=== PATIENT | male | born 1940 | race Caucasian/White ===

== ENCOUNTER 2019-04-17 10:28 | Day surgery (SDC) | payer MEDICARE, BC ==
[2019-04-17] VITALS (9 sets, daily range): BP systolic 104–159; BP diastolic 57–99
[~2019-04-17] VITALS: Ht 182.9 cm; Wt 70.8 kg
[2019-04-17] MEDS ORDERED: diphenhydrAMINE 25mg capsule PO PRN (10:50)
[2019-04-17] MEDS ORDERED: normal saline 1,000 ML IV SCH (10:50)
[2019-04-17 11:36] LABS: BASOPHILS % (AUTO) 0.3 % (0-1); EOSINOPHILS % (AUTO) 0 % (0-6); HEMATOCRIT 28.3 % (42.0-52.0); LYMPHOCYTES # (AUTO) 0.8 X10'3 (1.1-4.8); LYMPHOCYTES % (AUTO) 18.1 % (21-51); MEAN CORPUSCULAR HEMOGLOBIN 40.4 PG (27.0-31.0); MEAN CORPUSCULAR HGB CONC 35.5 g/dL (33.0-36.5); MEAN CORPUSCULAR VOLUME 113.9 FL (78-98); MEAN PLATELET VOLUME 9.8 FL (7.4-10.4); MONOCYTES # (AUTO) 0.9 X10'3 (0-0.9); MONOCYTES % (AUTO) 19.2 % (2-12); NEUTROPHILS # (AUTO) 2.8 X10'3 (1.8-7.7); NEUTROPHILS % (AUTO) 62.4 % (42-75); PLATELET COUNT 118 X10'3 (140-440); RED BLOOD COUNT 2.49 X10'6 (4.70-6.10); RED CELL DISTRIBUTION WIDTH 16.5 % (11.5-14.5); WHITE BLOOD COUNT 4.5 X10'3 (4.5-11.0)
[2019-04-17 11:45] LABS: ALBUMIN 4.1 G/DL (3.4-5.0); ANION GAP 10 (8-16); BLOOD UREA NITROGEN 23 MG/DL (7-18); BUN/CREATININE RATIO 13.6 (5.4-32.0); CALCIUM 8.5 MG/DL (8.5-10.1); CHLORIDE 108 MMOL/L (99-107); CREATININE 1.69 MG/DL (0.60-1.10); GLUCOSE 101 MG/DL (70-104); MAGNESIUM 1.9 MG/DL (1.5-2.4); POTASSIUM 3.9 MMOL/L (3.5-5.1); SODIUM 141 MMOL/L (135-145); TOTAL CARBON DIOXIDE 22.6 MMOL/L (24-32); eGFR 39 ML/MIN
[2019-04-17] MEDS ORDERED: ASPI81TA52 PO (11:51)
[2019-04-17] MEDS ORDERED: ATOR10TA87 PO (11:52)
[2019-04-17] MEDS ORDERED: PEGF6DIS2 SQ (11:54)
[2019-04-17] MEDS ORDERED: AZAC100V SQ (11:56)
[2019-04-17] MEDS ORDERED: ONDA4TAB6 PO (11:58)
[2019-04-17] MEDS ORDERED: iohexol 350 MG/ML 50ML vial IV ONE (12:21)
[2019-04-17] MEDS ORDERED: fentaNYL/PF 50MCG/1 ML 2ML syringe ONE (12:21)
[2019-04-17] MEDS ORDERED: LIDOcaine 1% (10mg/ml)w/preservative injection 20ml MDV ONE (12:21)
[2019-04-17] MEDS ORDERED: midazolam 2 mg/2 ml injection ONE ×2 (12:21→12:45)
[2019-04-17] MEDS ORDERED: iohexol 350MG/ML 100ml bottle IV ONE (12:21)
[2019-04-17 12:31] LABS: ANISOCYTOSIS 1+; LARGE PLATELETS FEW; PLATELET ESTIMATE DECREASED; TOTAL CELLS COUNTED 100
[2019-04-17] MEDS ORDERED: heparin 1,000unit/ml 10ml vial 10 ML ONE (12:49)
[2019-04-17] MEDS ORDERED: HYDROcodone/acetaminophen 10/325mg tab PO PRN (14:15)
[2019-04-17] MEDS ORDERED: OXAZEpam 15mg capsule PO PRN (14:15)
[2019-04-17] MEDS ORDERED: HYDROcodone/acetaminophen 5mg/325mg tablet PO PRN (14:15)
[2019-04-17] MEDS ORDERED: acetaminophen 325mg tablet PO PRN (14:15)
== END 2019-04-17 17:05 | disposition home or self-care (01) ==
LOC: SSTAY O 10:28
PROVIDERS: ATTEND Internal Medicine Cardiovascular Disease
DX: I35.0 Nonrheumatic aortic (valve) stenosis (principal); I25.10 Atherosclerotic heart disease of native coronary artery without angina pectoris; I10 Essential (primary) hypertension; E78.5 Hyperlipidemia, unspecified; D46.9 Myelodysplastic syndrome, unspecified; F17.210 Nicotine dependence, cigarettes, uncomplicated; Z79.899 Other long term (current) drug therapy; Z79.82 Long term (current) use of aspirin; Z88.1 Allergy status to other antibiotic agents; Z98.890 Other specified postprocedural states; Z72.89 Other problems related to lifestyle
CPT/HCPCS: 80048; 83735; 85025; 85610; 93005; 93460; 99152; 99153; C1769; C1894; J1644; J2001; J2250; J3010; J7030; Q0163; Q9967; A4620; A6258; C1760

== ENCOUNTER 2022-02-06 08:02 | Day surgery (SDC) | payer MEDICARE, BC ==
[2022-01-30 11:09] LABS: BASOPHILS % (AUTO) 0.7 % (0-1); EOSINOPHILS % (AUTO) 0.3 % (0-6); LYMPHOCYTES # (AUTO) 1.1 X10'3 (1.1-4.8); LYMPHOCYTES % (AUTO) 49.4 % (21-51); MEAN CORPUSCULAR HEMOGLOBIN 40.6 PG (27.0-31.0); MEAN CORPUSCULAR HGB CONC 34.2 g/dL (33.0-36.5); MEAN CORPUSCULAR VOLUME 118.7 FL (78-98); MEAN PLATELET VOLUME 9.7 FL (7.4-10.4); MONOCYTES # (AUTO) 0.4 X10'3 (0-0.9); MONOCYTES % (AUTO) 19.4 % (2-12); NEUTROPHILS # (AUTO) 0.6 X10'3 (1.8-7.7); NEUTROPHILS % (AUTO) 30.2 % (42-75); PRE OP HEMATOCRIT 27.7 % (42.0-52.0); PRE OP PLATELET COUNT 200 X10'3 (140-440); RED BLOOD COUNT 2.33 X10'6 (4.70-6.10); RED CELL DISTRIBUTION WIDTH 17.9 % (11.5-14.5)
[2022-01-30 11:29] LABS: ALBUMIN 4.1 G/DL (3.4-5.0); ALBUMIN/GLOBULIN RATIO 0.9 (1.1-1.5); ALKALINE PHOSPHATASE 62 IU/L (46-116); BLOOD UREA NITROGEN 28 MG/DL (7-18); BUN/CREATININE RATIO 15.5 (5.4-32.0); CALCIUM 9.3 MG/DL (8.5-10.1); CHLORIDE 106 MMOL/L (99-107); CREATININE 1.81 MG/DL (0.60-1.10); PRE OP ALT 23 U/L (30-65); PRE OP ANION GAP 6 (8-16); PRE OP AST 23 U/L (10-37); PRE OP BILIRUB, TOTAL 0.6 MG/DL (0.0-1.0); PRE OP GLUCOSE 95 MG/DL (70-104); PRE OP POTASSIUM 4.1 MMOL/L (3.4-5.1); PRE OP SODIUM 140 MMOL/L (135-145); TOTAL CARBON DIOXIDE 27.9 MMOL/L (24-32); TOTAL PROTEIN 8.5 G/DL (6.4-8.2); eGFR 36 ML/MIN
[2022-01-30 12:02] LABS: TOTAL CELLS COUNTED 100
[2022-01-30 12:03] LABS: ANISOCYTOSIS 1+; PLATELET ESTIMATE NORMAL
[2022-01-30 12:04] LABS: BURR CELLS FEW; SCHISTOCYTES FEW
[2022-01-30 12:06] LABS: PRE OP HEMOGLOBIN 9.5 g/dL (14.0-17.9)
[2022-02-06] VITALS (11 sets, daily range): BP systolic 121–166; BP diastolic 62–83
[~2022-02-06] VITALS: Ht 182.9 cm; Wt 67.9 kg
[~2022-02-06 08:02] MED LIST: ASPI81TA52 PO; ATOR10TA87 PO; ceFAZolin inj. 2,000 MG in dextrose 5%-water 100 ML IV ONE; famotidine 20mg tablet PO ONE; normal saline 500ml IV soln 500 ML IV SCH
--- NOTE | 2022-02-06 08:25 | NUR ---
PT PREPPED FOR SURGERY. AT BEDSIDE, MULTIPLE QUESTIONS ANSWERED, IS CONCERNED IF PT HAS TO HAVE A WILSON POST SURGERY. DR QUINTANA AT BEDSIDE, ALL QUESTIONS ANSWERED. IV STARTED WITHOUT DIFFICULTY. PT ASSISTED UP TO THE BATHROOM PRIOR TO SURGERY. STATES THAT PT DOES HAVE SOME ER SYMPTOMS, SHE IS CONCERNED THAT HE MIGHT FALL AFTER SURGERY. 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 LARGE BULGING RIGHT SIDED HERNIA PRESENT. MARKED BY DR QUINTANA.
[2022-02-06] MEDS ORDERED: ondansetron/PF 4mg/2ml inj IV PRN (08:40)
[2022-02-06] MEDS ORDERED: proCHLORperazine 10 MG/2 ml inj IV PRN (08:40)
[2022-02-06] MEDS ORDERED: morphine 2 MG/ML inj. syringe IV PRN (08:40)
[2022-02-06] MEDS ORDERED: meperidine/PF 25mg/ml syringe IV PRN ×3 (08:40)
[2022-02-06] MEDS ORDERED: morphine 4 MG/ML inj SYRINge IV PRN (08:40)
[2022-02-06] MEDS ORDERED: ringers solution, lacted 1,000 ML IV SCH (08:40)
[2022-02-06] MEDS ORDERED: propofol inj 20 ML IV ONE (09:04)
[2022-02-06] MEDS ORDERED: midazolam 1 mg/ML 2ml injection ONE (09:04)
[2022-02-06] MEDS ORDERED: fentaNYL/PF 50MCG/1 ML 2ML syringe ONE (09:04)
[2022-02-06] MEDS ORDERED: LIDOcaine 2% (20mg/ml) 5ml vial ONE (09:04)
[2022-02-06] MEDS ORDERED: LIDOcaine 1% 30ml preserv. free vial ONE (09:24)
[2022-02-06] MEDS ORDERED: BUPIVAcaine/PF 2.5mg/ml (0.25%) 10ml vial ONE (09:24)
[2022-02-06] MEDS ORDERED: acetaminophen 1,000mg/100ml IV 100 ML IV ONE (10:38)
[2022-02-06] MEDS ORDERED: HYDROcodone/acetaminophen 5mg/325mg tablet PO PRN (11:10)
--- NOTE | 2022-02-06 11:12 | NUR ---
Received from OR via [facility], accompanied by Anesthesiologist DR IBARRA and report given by Anesthesiolgist. PT PRESENT WITH 20G LEFT HAND, ABD DRESSING , 3 BANDAIDS CDI. VSS. Addendum: 02/06/22 at 1126 by Anila Valentine RN, RN Amended: Links added.
--- NOTE | 2022-02-06 13:42 | NUR ---
PT TO PAS, KELLY WESLEY TO ASSUME CARE, REPORT GIVEN.
--- NOTE | 2022-02-06 15:07 | NUR ---
ASSISTED LUPILLO VALENZUELA WITH PT CARE AND MEDICATING PT WITH NORCO PER EMAR FOR PAIN PRIOR TO D/C.
--- NOTE | 2022-02-06 15:40 | NUR ---
PT HAS MET D/C CRITERIA. IV D/C'D. VSS. DRESSING C/D/I. PT WAS UNABLE TO VOID AND F/C WAS PLACED. PT AND GIVEN INSTRUCTIONS TO FOLLOW UP WITH DR QUINTANA AND STATES PT HAS APPT SATURDAY.. I HAVE REVIEWED D/C INSTRUCTIONS WITH PATIENT AND HE HAS VERBALIZED UNDERSTANDING OF INSTRUCTIONS. PATIENT D/C HOME WITH ALL BELONGINGS
== END 2022-02-06 15:32 | disposition home or self-care (01) ==
LOC: PAS 08:02
PROVIDERS: ATTEND Surgery
DX: K40.90 Unilateral inguinal hernia, without obstruction or gangrene, not specified as recurrent (principal); Z79.899 Other long term (current) drug therapy; Z98.890 Other specified postprocedural states; F17.210 Nicotine dependence, cigarettes, uncomplicated; Z88.8 Allergy status to other drugs, medicaments and biological substances; Z79.82 Long term (current) use of aspirin
CPT/HCPCS: 36415; 49650; 80053; 82948; 85025; 93005; C1781; J0131; J0690; J2175; J2250; J2704; J3010; J3490; J7030; J7040; J7060; J7120; Z7506; Z7508; Z7512; 85007; A4215; A4618